=== PATIENT | male | born 1975 | race Caucasian/White ===

== ENCOUNTER 2017-04-11 12:26 | Emergency (ER) | payer MEDICAID ==
[~2017-04-11] VITALS: Ht 175.3 cm; Wt 81.6 kg
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
[2017-04-11] MEDS ORDERED: ONDANSETRON HCL/PF 4 MG/2 ML VIAL IV ONE (13:00)
[2017-04-11] MEDS ORDERED: TDAP [DIPH/PERTUSSIS/TET] 0.5 ML VIAL IM ONE ×2 (13:00→13:09)
[2017-04-11] MEDS ORDERED: PIPERACILLIN /TAZOBACTAM 3.375 G in IV D5W 50 ML IV ONE (13:00)
[2017-04-11] MEDS ORDERED: MORPHINE SULFATE INJ 2 MG/ML DISP.SYRIN IV ONE ×2 (13:00→15:00)
--- NOTE | 2017-04-11 13:04 | NUR ---
blood drawn and sent to lab
[2017-04-11] MEDS ORDERED: ONDANSETRON HCL/PF 4 MG/2 ML VIAL ONE (13:06)
[2017-04-11] MEDS ORDERED: MORPHINE SULFATE INJ 4 MG/ML DISP.SYRIN ONE ×2 (13:06→15:05)
[2017-04-11 13:17] LABS: BASOPHILS # (AUTO) 0.1 /CMM (0.0-0.2); BASOPHILS % (AUTO) 0.8 % (0.0-2.0); EOSINOPHILS # (AUTO) 0.1 /CMM (0.0-0.7); EOSINOPHILS % (AUTO) 1.2 % (0.0-6.0); HEMATOCRIT 43 % (39-51); HEMOGLOBIN 14.6 g/dL (13.5-17.5); LYMPHOCYTES % (AUTO) 19.9 % (20.0-44.0); MEAN CORPUSCULAR HEMOGLOBIN 30 PG (26.0-33.0); MEAN CORPUSCULAR HGB CONC 34 g/dl (31.0-36.0); MEAN CORPUSCULAR VOLUME 88 fL (80-96); MONOCYTES # (AUTO) 0.6 /CMM (0.1-1.30); MONOCYTES % (AUTO) 6.4 % (2.0-12.0); NEUTROPHILS # (AUTO) 7.2 /CMM (1.8-8.9); NEUTROPHILS % (AUTO) 71.7 % (43.0-81.0); PLATELET COUNT (AUTO) 364 /CMM (150-450); RDW COEFFICIENT OF VARIATION 12.1 (11.5-15.0); RED BLOOD CELL COUNT(AUTO) 4.84 MIL/uL (4.5-6.0)
[2017-04-11 13:26] LABS: CALCIUM, SERUM 9.1 mg/dL (8.5-10.1); CREATININE 0.9 mg/dL (0.6-1.3); POTASSIUM 3.5 mmol/L (3.5-5.1)
[2017-04-11 13:42] LABS: INR 0.94 (0.87-1.13); PROTHROMBIN TIME 9.8 SECS (9.5-12.7)
[2017-04-11] MEDS ORDERED: HYDR-3026 PO (13:54)
[2017-04-11] MEDS ORDERED: RISP0.253 PO (13:54)
[2017-04-11] MEDS ORDERED: CARB200T8 PO (13:54)
[2017-04-11] MEDS ORDERED: TRAZ150T75 PO (13:54)
--- NOTE | 2017-04-11 13:59 | NUR ---
CALLED [facility] FOR HIGHER LEVEL OF CARE, SPOKE WITH MALVIN, PRESENTED PT, AWAITING CALL BACK
--- NOTE | 2017-04-11 14:32 | NUR ---
CALLED DR RICKY PLASCENCIA LEFT VOICEMAIL WITH CALL BACK NUMBER.
--- NOTE | 2017-04-11 14:38 | NUR ---
PATIENT ACCEPTED AT [facility], ACCEPTED BY DR FITZPATRICK. WILL GO TO THE ER FOR RN TO RN
[2017-04-11 16:00] VITALS: BP 138/89
--- NOTE | 2017-04-11 16:26 | NUR ---
FOR REPORT [phone]
== END 2017-04-11 16:58 ==
LOC: ER 12:36
DX: S61.402A Unspecified open wound of left hand, initial encounter (principal); F31.9 Bipolar disorder, unspecified; Z88.8 Allergy status to other drugs, medicaments and biological substances; Y04.1XXA Assault by human bite, initial encounter; Y93.89 Activity, other specified; Y92.89 Other specified places as the place of occurrence of the external cause; Y99.8 Other external cause status
CPT/HCPCS: 36415; 71010; 73130 ×2; 80048; 85025; 85730; 87040 ×2; 87081; 90471; 90715; 93005; 96365; 96375; 96376; 99285; A4606; J2270 ×2; J2405; J2543; J7030; J7060; Z7610

== ENCOUNTER 2017-04-12 13:37 | Emergency (ER) | payer MEDICAID ==
[~2017-04-12] VITALS: Ht 175.3 cm; Wt 81.6 kg
[~2017-04-12 13:37] MED LIST: CARB200T8 PO; HYDR-3026 PO; RISP0.253 PO; TRAZ150T75 PO
[2017-04-12 17:23] VITALS: BP 119/62
== END 2017-04-12 18:48 | disposition home or self-care (01) ==
LOC: ER 13:38
DX: S69.91XD Unspecified injury of right wrist, hand and finger(s), subsequent encounter (principal); F31.9 Bipolar disorder, unspecified; Z88.8 Allergy status to other drugs, medicaments and biological substances; Y04.0XXD Assault by unarmed brawl or fight, subsequent encounter
CPT/HCPCS: 29130; 99283; A4606; Z7610